=== PATIENT | female | born 1980 | race Caucasian/White ===

== ENCOUNTER 2023-12-18 15:13 | Outpatient (CLI) | payer BC | END 2023-12-18 15:14 | disposition home or self-care (01) | LOC: BICMRI 15:13 | PROVIDERS: ATTEND Orthopaedic Surgery | DX: M54.16 Radiculopathy, lumbar region (principal); M48.061 Spinal stenosis, lumbar region without neurogenic claudication | CPT/HCPCS: 72148 ==